=== PATIENT | female | born 1960 | race Caucasian/White ===

== ENCOUNTER → 2018-01-07 09:23 | Outpatient (CLI) | payer BC | END | disposition home or self-care (01) | LOC: D.RAD 09:23 | DX: R13.12 Dysphagia, oropharyngeal phase (principal) ==

== ENCOUNTER → 2018-01-13 11:27 | Outpatient (CLI) | payer BC | END | disposition home or self-care (01) | LOC: D.LAB 10:15 | DX: K62.5 Hemorrhage of anus and rectum (principal); R22.9 Localized swelling, mass and lump, unspecified ==